=== PATIENT | male | born 1955 | race Caucasian/White ===

== ENCOUNTER 2018-05-24 18:25 | Emergency (ER) | payer MEDICARE, MEDICAID ==
[2018-05-24] MEDS ORDERED: SODIUM BICARBONATE 4.2% INJ 10 ML SYRINGE ONE (18:26)
[2018-05-24] MEDS ORDERED: EPINEPHrine 1MG/10ML SYRINGE 1.5IN ONE (18:26)
== END 2018-05-24 20:30 | disposition expired ==
LOC: EDBD 18:25 → M ED 18:25
DX: I46.9 Cardiac arrest, cause unspecified (principal)